=== PATIENT | female | born 1995 | race Caucasian/White ===

== ENCOUNTER 2023-09-06 14:22 | Emergency (ER) | payer OTHER ==
[~2023-09-06] VITALS: Ht 149.9 cm; Wt 68.9 kg
[2023-09-06 14:35] VITALS: BP 104/68; PULSE 83; RESP 18; TEMP 97.4; O2SAT 100
[2023-09-06] MEDS: KETOROLAC 30 MG/ML VIAL IM ONE (15:32)
[2023-09-06 16:16] VITALS: BP 108/72; PULSE 80; RESP 18; TEMP 97.6; O2SAT 100
[2023-09-06] MEDS ORDERED: LID5T TP (16:16)
[2023-09-06] MEDS ORDERED: CYCL-711 PO (16:16)
[2023-09-06] MEDS ORDERED: NAPR-337 PO (16:16)
== END 2023-09-06 16:21 | disposition home or self-care (01) ==
LOC: MED 14:22
DX: M79.18 Myalgia, other site (principal); R51.9 Headache, unspecified; R07.89 Other chest pain; Z79.899 Other long term (current) drug therapy; V89.2XXA Person injured in unspecified motor-vehicle accident, traffic, initial encounter; Y93.89 Activity, other specified; Y92.410 Unspecified street and highway as the place of occurrence of the external cause; Y99.8 Other external cause status
CPT/HCPCS: 71045; 81025; 96372; 99283; J1885